=== PATIENT | female | born 1995 | race Caucasian/White ===

== ENCOUNTER 2016-11-30 01:16 | Emergency (ER) | payer OTHER ==
[2016-11-30 01:27] VITALS: RESP 16
--- NOTE | 2016-11-30 01:47 | EDPHY ---
H & P Stated Complaint: slipped on ice, back pain HPI/ROS: HPI CHIEF COMPLAINT: Slipped on ice at 4:00 p.m. fall HISTORY OF PRESENT ILLNESS: This patient is a very pleasant 21-year-old female she denies having any significant medical or surgical history she presents to the emergency room after she slipped on snow/ice on the stairs after she took off her snowboard to leave the [place] resort [place] at 4:00 p.m. this evening. Patient tells me that she took off her snowboard she was standing on the stair she fell backwards could she slipped landing on her left posterior ribs and left posterior sacroiliac crest. She denies midline pain, denies head strike, denies neck pain, denies chest pain or shortness of breath. She denies abdominal pain. Denies any other injuries. She tells me she was not drinking. Past Medical History: anxiety takes Klonopin, attention deficit hyperactivity disorder takes Vyvanse Past Surgical History: Denies significant surgical Social History: Denies daily use drugs alcohol tobacco products, is from [place] visiting a friend here in [place], Family History: Noncontributory ROS REVIEW OF SYSTEMS: A comprehensive 10 point review of systems is otherwise negative aside from elements mentioned in the history of present illness. Exam Constitutional triage nursing summary reviewed, vital signs reviewed, awake/ alert. Eyes normal conjunctivae and sclera, EOMI, PERRLA. HENT normal inspection, atraumatic, moist mucus membranes, no epistaxis, neck supple/ no meningismus, no raccoon eyes. Respiratory clear to auscultation bilaterally, normal breath sounds, no respiratory distress, no wheezing. Cardiovascular rate normal, regular rhythm, no murmur, no edema, distal pulses normal. Gastrointestinal soft, non-tender, no rebound, no guarding, normal bowel sounds, no distension, no pulsatile mass. Genitourinary no CVA tenderness. Musculoskeletal back exam: no signs of significant trauma no ecchymosis, no midline lumbar pain, does have mild pain to the left posterior ribs and left posterior sacroiliac crest, pelvis stable, abdomen benign , full range of motion , no calf swelling, no tenderness of extremities, no meningismus, good pulses, neurovascularly intact. Skin pink, warm, & dry, no rash, skin atraumatic. Neurologic awake, alert and oriented x 3, AAOx3, moves all 4 extremities equally, motor intact, sensory intact, CN II-XII intact, normal cerebellar, normal vision, normal speech. Psychiatric normal mood/affect. Heme/Lymph/Immune no lymphadenopathy. Differential Diagnosis:includes but is not limited to in a particular order, rib contusion, rib fractures, pneumothorax, soft tissue injury, underlying kidney injury, left posterior pelvic pain pelvic wing pain, bony contusion, doubt pelvic fracture Medical Decision Making: this patient be given [place] for pain control ibuprofen for pain control she will have a pelvis x-ray, also will have a chest x-ray and rib series left-sided to rule out significant bony abnormality will also check a urinalysis given she had right over her kidney make sure she did not have blood in her urine. Abdomen is benign. Re-evaluation: ED x-ray chest two view with left-sided rib series: negative for acute traumatic injury specifically no visualize pneumothorax, or abscess rib fractures. Image interpreted by myself ED x-ray pelvis x-ray negative for acute fracture of the iliac wing or pelvis. Image interpreted by myself. Patient's urinalysis has been reviewed and shows blood in her urine due to trauma her left flank and blood in her urine will proceed with a CT scan abdomen pelvis with IV contrast rule out significant trauma. Patient agrees and has been updated. CT scan of the abdomen pelvis with IV contrast for trauma The results of the study are negative for acute traumatic injury specifically no renal laceration, splenic injury or rib fracture noted on CT The study was read by Dr. Lund I viewed the images myself on the PACS system. 0500: Re-examination at this time this patient is resting comfortably no acute distress abdomen is soft nontender, she does have musculoskeletal flank pain or place her on ibuprofen and [place] for pain control. She understands ice her back. Her x-rays and CT are reassuring. Abdomen remained soft she is not vomiting she feels much better after IV fentanyl. She is agreeable and discharged. Source: Patient - Personal History LMP (Females 10-55): 22-28 Days Ago Current Tetanus/Diphtheria Vaccine: Yes Current Tetanus Diphtheria and Acellular Pertussis (TDAP): Yes - Medical/Surgical History Hx Asthma: No Hx Chronic Respiratory Disease: No Hx Diabetes: No Hx Cardiac Disease: No Hx Renal Disease: No Hx Cirrhosis: No Hx Alcoholism: No Hx HIV/AIDS: No Hx Splenectomy or Spleen Trauma: No Other PMH: adha, anxiety - Social History Smoking Status: Never smoked Constitutional: Initial Vital Signs Temperature (C) 36.9 C 11/30/16 01:23 Heart Rate 115 H 11/30/16 01:23 Respiratory Rate 16 11/30/16 01:23 Blood Pressure 124/85 H 11/30/16 01:23 O2 Sat (%) 92 11/30/16 01:23 O2 Delivery Mode Room Air O2 (L/minute) 2 Allergies/Adverse Reactions: No Known Allergies Allergy (Unverified 11/30/16 01:22) Home Medications: Medication Instructions Recorded Hydrocodone/APAP 5/325 [[place] 1 - 2 tab PO Q4H PRN #10 tab 11/30/16 5/325] Ibuprofen [Motrin (*)] 800 mg PO Q6-8PRN #7 tab 11/30/16 Vyvanse 11/30/16 Xanax 11/30/16 Medical Decision Making - Data Points Laboratory Results: Laboratory Results 11/30/16 03:54 11/30/16 03:54 11/30/16 11/30/16 11/30/16 03:54 03:49 03:10 WBC 6.80 10^3/uL (3.80-9.50) RBC 4.36 10^6/uL (4.18-5.33) Hgb 14.8 g/dL (12.6-16.3) POC Hgb 16.0 H gm/dL (12.3-15.9) Hct 43.2 % (38.0-47.0) POC Hct 47 % (35.5-47.5) MCV 99.1 fL (81.5-99.8) MCH 33.9 pg (27.9-34.1) MCHC 34.3 g/dL (32.4-36.7) RDW 11.4 L % (11.5-15.2) Plt Count 287 10^3/uL (150-400) MPV 9.7 fL (8.7-11.7) Neut % (Auto) 44.1 % (39.3-74.2) Lymph % (Auto) 39.3 % (15.0-45.0) Moody % (Auto) 11.5 % (4.5-13.0) Eos % (Auto) 3.8 % (0.6-7.6) Baso % (Auto) 1.0 % (0.3-1.7) Nucleat RBC Rel Count 0.0 % (0.0-0.2) Absolute Neuts (auto) 3.00 10^3/uL (1.70-6.50) Absolute Lymphs (auto) 2.67 10^3/uL (1.00-3.00) Absolute Monos (auto) 0.78 10^3/uL (0.30-0.80) Absolute Eos (auto) 0.26 10^3/uL (0.03-0.40) Absolute Basos (auto) 0.07 10^3/uL (0.02-0.10) Absolute Nucleated RBC 0.00 10^3/uL (0-0.01) Immature Gran % 0.3 % (0.0-1.1) Immature Gran # 0.02 10^3/uL (0.00-0.10) POC Sodium 141 mEq/L (134-144) Sodium 143 mEq/L (134-144) POC Potassium 4.7 mEq/L (3.3-5.0) Potassium 4.6 mEq/L (3.5-5.2) POC Chloride 102 mEq/L (96-108) Chloride 103 mEq/L (97-110) Carbon Dioxide 23 mEq/l (22-31) Anion Gap 17 mEq/L (8-16) POC BUN 7 mg/dL (7-23) BUN 7 mg/dL (7-23) Creatinine 0.7 mg/dL (0.6-1.0) POC Creatinine 1.0 mg/dL (0.6-1.2) Estimated GFR > 60 Glucose 86 mg/dL (70-100) POC Glucose 88 mg/dL (70-100) Calcium 9.5 mg/dL (8.5-10.4) Urine Color PALE YELLOW Urine Appearance CLEAR Urine pH 6.0 (5.0-7.5) Ur Specific [place] 1.003 (1.002-1.030) Urine Protein NEGATIVE (NEGATIVE) Urine Ketones NEGATIVE (NEGATIVE) Urine Blood 1+ H (NEGATIVE) Urine Nitrate NEGATIVE (NEGATIVE) Urine Bilirubin NEGATIVE (NEGATIVE) Urine Urobilinogen NEGATIVE EU (0.2-1.0) Ur Leukocyte Esterase NEGATIVE (NEGATIVE) Urine RBC 1-3 /hpf (0-3) Urine WBC 1-3 /hpf (0-3) Ur Epithelial Cells TRACE /lpf (NONE-1+) Urine Bacteria TRACE H /hpf (NONE SEEN) Ur Culture Indicated? NOT INDICATED (NI) Urine Glucose NEGATIVE (NEGATIVE) Urine Test 11/30/16 01:53 WBC RBC Hgb POC Hgb Hct POC Hct MCV MCH MCHC RDW Plt Count MPV Neut % (Auto) Lymph % (Auto) Moody % (Auto) Eos % (Auto) Baso % (Auto) Nucleat RBC Rel Count Absolute Neuts (auto) Absolute Lymphs (auto) Absolute Monos (auto) Absolute Eos (auto) Absolute Basos (auto) Absolute Nucleated RBC Immature Gran % Immature Gran # POC Sodium Sodium POC Potassium Potassium POC Chloride Chloride Carbon Dioxide Anion Gap POC BUN BUN Creatinine POC Creatinine Estimated GFR Glucose POC Glucose Calcium Urine Color Urine Appearance Urine pH Ur Specific [place] Urine Protein Urine Ketones Urine Blood Urine Nitrate Urine Bilirubin Urine Urobilinogen Ur Leukocyte Esterase Urine RBC Urine WBC Ur Epithelial Cells Urine Bacteria Ur Culture Indicated? Urine Glucose Urine Test NEGATIVE Medications Given: Discontinued Medications Acetaminophen/Hydrocodone Bitart ([place] 5/325) 1 tab PO EDNOW ONE Stop: 11/30/16 01:53 Last Admin: 11/30/16 02:12 Dose: 1 tab Fentanyl (Sublimaze) 100 mcg IVP EDNOW ONE Stop: 11/30/16 04:05 Last Admin: 11/30/16 04:04 Dose: 100 mcg Sodium Chloride (Ns) 1,000 mls @ 0 mls/hr IV ONCE ONE PRN Reason: Wide Open Stop: 11/30/16 03:46 Last Admin: 11/30/16 04:04 Dose: 1,000 mls Ibuprofen (Motrin) 800 mg PO EDNOW ONE Stop: 11/30/16 01:53 Last Admin: 11/30/16 02:13 Dose: 800 mg Point of Care Test Results: 11/30/16 03:49 POC Sodium 141 POC Potassium 4.7 POC Chloride 102 POC BUN 7 POC Creatinine 1.0 POC Glucose 88 Departure - Departure Disposition: Home, Routine, Self-Care Clinical Impression: Fall Qualifiers: Encounter type: initial encounter Qualifier Code: (W19.XXXA) Unspecified fall, initial encounter Back contusion Qualifiers: Encounter type: initial encounter Laterality: left Qualifier Code: (S20.222A) Contusion of left back wall of thorax, initial encounter Condition: Good Instructions: Contusion in Adults (ED), Rib Contusion (ED) Additional Instructions: 1. Return to the emergency room if you developed worsening pain 2. please stay well-hydrated take it easy over the next 3 days 3. Take ibuprofen for mild pain or [place] for severe pain Referrals: OUT OF STATE,. [Primary Care Provider] - As per Instructions Prescriptions: Ibuprofen [Motrin (*)] 800 mg PO Q6-8PRN #7 tab Hydrocodone/APAP 5/325 [[place] 5/325] 1 - 2 tab PO Q4H PRN #10 tab PRN Reason: Pain, Moderate
[2016-11-30] MEDS ORDERED: IBUPROFEN 200 MG TAB PO ONE (01:52)
[2016-11-30] MEDS ORDERED: HYDROCODONE/APAP 5/325 TAB PO ONE (01:52)
[2016-11-30 03:38] LABS: COLOR PALE YELLOW; LEUKOCYTE ESTERASE,URINE NEGATIVE (NEGATIVE); NITRITE,URINE NEGATIVE (NEGATIVE)
[2016-11-30 03:44] LABS: BACTERIA TRACE /hpf (NONE SEEN)
[2016-11-30] MEDS ORDERED: NS 1,000 ML IV ONE (03:45)
[2016-11-30] MEDS ORDERED: fentaNYL 100 MCG/2 ML INJ ONE (03:59)
[2016-11-30] MEDS ORDERED: IOPAMIDOL (ISOVUE-300) 100 ML BTL IV ONE (04:01)
[2016-11-30] MEDS ORDERED: fentaNYL 100 MCG/2 ML INJ IVP ONE (04:04)
[2016-11-30 04:09] LABS: % IMMATURE GRANULYOCYTES 0.3 % (0.0-1.1); ABSOLUTE IMMATURE GRANULOCYTES 0.02 10^3/uL (0.00-0.10); ADD DIFF? NO; ADD MORPH? NO; ADD SCAN? NO; ATYPICAL LYMPHOCYTE FLAG 10 (0-99); FRAGMENT RBC FLAG 0 (0-99); HEMATOCRIT 43.2 % (38.0-47.0); HEMOGLOBIN 14.8 g/dL (12.6-16.3); LEFT SHIFT FLG 0 (0-99); LIPEMIA HEMOLYSIS FLAG 90 (0-99); MEAN CELL HEMOGLOBIN 33.9 pg (27.9-34.1); MEAN CELL HEMOGLOBIN CONCENTR. 34.3 g/dL (32.4-36.7); MEAN CELL VOLUME 99.1 fL (81.5-99.8); MEAN PLATELET VOLUME 9.7 fL (8.7-11.7); PLATELET CLUMPS FLAG 10 (0-99); PLATELET COUNT 287 10^3/uL (150-400); RED BLOOD CELL COUNT 4.36 10^6/uL (4.18-5.33); RED CELL DISTRIBUTION WIDTH 11.4 % (11.5-15.2)
[2016-11-30 04:33] LABS: ANION GAP 17 mEq/L (8-16); CALCIUM 9.5 mg/dL (8.5-10.4); CARBON DIOXIDE 23 mEq/l (22-31); CHLORIDE 103 mEq/L (97-110); CREATININE 0.7 mg/dL (0.6-1.0); GLOMERULAR FILTRATION RATE > 60; GLUCOSE 86 mg/dL (70-100); POTASSIUM 4.6 mEq/L (3.5-5.2); SODIUM 143 mEq/L (134-144)
[2016-11-30 05:09] VITALS: BP 123/82; PULSE 86; TEMP 97.9; O2SAT 98
--- NOTE | 2016-11-30 09:00 | DX ---
Left RIBS with chest. November 30, 2016. HISTORY: Pain after fall snowboarding. FINDINGS: Detailed images of the left RIBS are negative for displaced fracture. Single view chest is normal, without pneumothorax or pleural hematoma. Heart size is normal. Lungs ar e clear. IMPRESSION: 1. Negative left ribs and chest.
--- NOTE | 2016-11-30 09:05 | DX ---
AP pelvis. HISTORY: Pain after snowboarding injury. FINDINGS: Normal alignment. Joint spaces are maintained. No fracture identified. IMPRESSION: Negative for fracture.
--- NOTE | 2016-11-30 16:30 | CT ---
CT Scan of the Abdomen and Pelvis (With Contrast) November 30, 2016 at 0436 Hours History: Left flank pain, trauma, hematuria. Fall on stairs. Technique: Axial computed tomographic images of the abdomen and pelvis were obtained with the unevent ful intravenous administration of 90 mL Isovue-300 contrast. No oral or rectal contrast which limits the study. Dose reduction techniques were utilized. CT Abdomen Findings Lung bases: No pleural effusion or lower rib fracture. Liver: Benign fatty infiltration or 1 cm cyst near the ligamentum teres in the left lobe of the liver . No solid or suspicious renal masses. Biliary system: No obstruction. Spleen: Normal. Pancreas: Normal. Adrenals: Normal. Kidneys: No obstruction or solid masses. No perinephric fluid or renal laceration. Abdominal aorta: No aneurysm. No bowel obstruction, ascites, or significant retroperitoneal lymphadenopathy. CT Pelvis Findings: No pelvic fluid collections. Impressions: 1. Normal CT abdomen and pelvis with contrast enhancement. 2. No abdominal or pelvic hemorrhage or organ laceration. Findings and recommendations discussed with emergency department physician, Dr. Adalid Fernandez at 0455 hours today. Final report concurs with initial preliminary interpretation.
== END 2016-11-30 05:08 | disposition home or self-care (01) ==
DX: S20.222A Contusion of left back wall of thorax, initial encounter (principal); W00.9XXA Unspecified fall due to ice and snow, initial encounter
CPT/HCPCS: 82947-QW; 96374; J3010; Q9967